=== PATIENT | female | born 1970 | race African-American/Black ===

== ENCOUNTER 2016-12-08 08:39 | Observation (INO) | payer OTHER ==
[2016-12-08] VITALS (9 sets, daily range): BP systolic 91–125; BP diastolic 51–62
[~2016-12-08] VITALS: Ht 152.4 cm; Wt 83.0 kg
[~2016-12-08 08:39] MED LIST: AMLO10TA2 PO; BACL10TA PO; BUPIVACAINE-EPI 0.25%-1:200000 MPF 30 ML VIAL. ONE; CEFAZOLIN 2GM PREMIX 50 ML IV PRN; CICL6.1H IH; CLON0.1T PO; DESFLURANE 61 TO 120 MINUTES IH ONE; DEXAMETHASONE SOD PHOS 20 MG/5 ML VIAL. ONE; FENTANYL PF 100 MCG/2 ML VIAL. IV PRN; FENTANYL PF 100 MCG/2 ML VIAL. ONE; FERR-26 PO; FLUO40CA2 PO; HYDR12.58 PO; HYDR50TA PO; HYDROMORPHONE 2 MG/ML VIAL. IV PRN; IV RINGERS,LACTATED 1000ML 1,000 ML IV SCH; KETOROLAC 30 MG/ML SYRINGE FOR OR. INJ ONE; LIDOCAINE 1% 1 ML SYRINGE. ID PRN; LIDOCAINE 1%/EPI 1:100,000 20 ML VIAL. ONE; LIDOCAINE 2% 100 MG/5 ML DISP.SYRIN. ONE; LOSA25TA4 PO; MIDAZOLAM HCL/PF 2 MG/2 ML VIAL. ONE; NAPR500T8 PO; OMEP40CA5 PO; ONDANSETRON PF 4 MG/2 ML VIAL. IV PRN; ONDANSETRON PF 4 MG/2 ML VIAL. ONE; POLY17PO3 PO; PROCHLORPERAZINE 10 MG/2 ML VIAL. IV PRN; PROPOFOL 20 ML IV ONE; ROCURONIUM 50 MG/5 ML VIAL. ONE; SPIR25TA3 PO
[2016-12-08] MEDS ORDERED: ACETAMINOPHEN INTRAVENOUS 100 ML IV ONE (08:40)
[2016-12-08 09:09] LABS: NEG OBC UR NEG; POS OBC UR POS
[2016-12-08] MEDS ORDERED: ESTROGENS, CONJ VAGINAL CREAM 30GM TUBE. ONE (09:30)
[2016-12-08] MEDS ORDERED: SURGICEL HEMOSTAT 4X8 EACH. ONE (09:30)
[2016-12-08 09:51] LABS: BASO # 0.1 x10^3/uL (0.0-0.2); BASO % 1 % (0-3); EOS % 1 % (0-3); HEMATOCRIT 37.6 % (36.0-47.0); HEMOGLOBIN 12.7 g/dL (12.0-15.5); LYMPH # 3.4 x10^3/uL (1.0-4.8); LYMPH % 35 % (24-48); MEAN CORPUSCULAR HEMOGLOBIN 28 pg (25-35); MEAN CORPUSCULAR HGB CONC 34 g/dL (31-37); MEAN CORPUSCULAR VOLUME 84 fL (79-100); MONO % 10 % (0-9); NEUT % 53 % (31-73); PLATELET COUNT 463 x10^3/uL (140-400); RED CELL DISTRIBUTION WIDTH 13.2 % (11.5-14.5); WHITE BLOOD COUNT 9.5 x10^3/uL (4.0-11.0)
[2016-12-08] MEDS ORDERED: PHENYLEPHRINE in 0.9% NACL PF 1 MG/10 ML DISP.SYRIN. IV ONE ×3 (10:21→12:16)
[2016-12-08] MEDS ORDERED: EPHEDRINE PF IN SALINE 50 MG/5 ML DISP.SYRIN. IV ONE (10:21)
[2016-12-08] MEDS ORDERED: DESFLURANE > 120 MINUTES IH ONE (11:06)
[2016-12-08] MEDS ORDERED: ROCURONIUM 50 MG/5 ML VIAL. ONE (11:14)
[2016-12-08] MEDS ORDERED: PROPOFOL 20 ML IV ONE (11:14)
[2016-12-08] MEDS ORDERED: FENTANYL PF 100 MCG/2 ML VIAL. ONE ×3 (12:56→14:15)
[2016-12-08] MEDS ORDERED: CALCIUM CARBONATE 500 MG TAB.CHEW PO PRN (14:00)
[2016-12-08] MEDS ORDERED: ONDANSETRON PF 4 MG/2 ML VIAL. IV PRN (14:00)
[2016-12-08] MEDS ORDERED: DEXTROSE 50% 25 GM / 50ML DISP.SYRIN. IV PRN (14:00)
[2016-12-08] MEDS ORDERED: DIPHENHYDRAMINE 50 MG/ML VIAL IV PRN (14:00)
[2016-12-08] MEDS ORDERED: 0.9 % SODIUM CHLORIDE 10 ML DISP.SYRIN. IV PRN (14:00)
[2016-12-08] MEDS ORDERED: ZOLPIDEM 5 MG TABLET. PO PRN (14:00)
[2016-12-08] MEDS ORDERED: DIPHENHYDRAMINE HCL 25 MG CAPSULE PO PRN (14:00)
[2016-12-08] MEDS ORDERED: PROCHLORPERAZINE 10 MG/2 ML VIAL. IV PRN (14:00)
--- NOTE | 2016-12-08 14:00 | PDOC ---
BRIEF OPERATIVE NOTE Pre-Op Diagnosis 1. AUB 2. Dysmenorrhe 3. KENN Cyst Post-Op Diagnosis SAme + Fibroids Procedure Performed LAVH & LSO Surgeon Dr. Benoit Anesthesia Type: General Blood Loss 150 ml Specimens Obtained uterus, cervix, Left fallopian tube, KENN Findings enlarged uterus with multiple fibroids, multiple adhesions to abd wall and pelvic side wall, KENN cyst Complications none Additional Remarks pt. stable. LINA BENOIT Jr, MD Dec 08, 2016 14:00
[2016-12-08] MEDS: FENTANYL PF 100 MCG/2 ML VIAL. IV PRN ×4 (14:05→15:00)
[2016-12-08] MEDS: MORPHINE SULFATE 2 MG/ML DISP.SYRIN. IV PRN ×2 (14:18→14:41)
[2016-12-08] MEDS: KETOROLAC TROMETHAMINE 30 MG/ML SYRINGE. IV PRN ×2 (15:52→22:16)
[2016-12-08] MEDS: GABAPENTIN 300 MG CAPSULE. PO SCH ×2 (18:27→22:15)
[2016-12-08] MEDS: OXYCODONE/APAP 5/325 TABLET. PO PRN ×2 (18:28→22:59)
--- NOTE | 2016-12-08 19:24 | OP ---
DATE OF SURGERY: PREOPERATIVE DIAGNOSES: 1. Abnormal uterine bleeding. 2. Dysmenorrhea. 3. Left ovarian cyst. POSTOPERATIVE DIAGNOSES: 1. Abnormal uterine bleeding. 2. Dysmenorrhea. 3. Left ovarian cyst. 4. Fibroids. PROCEDURE: LAVH and LSO. SURGEON: Lina Lua M.D. ANESTHESIA: GETA. ESTIMATED BLOOD LOSS: 150 mL. COMPLICATIONS: None. FINDINGS: Enlarged fibroid uterus, multiple abdominal wall and pelvic several adhesions, left ovarian cyst. COMPLICATIONS: None. SUMMARY: A 46-year-old female with long history of abnormal uterine bleeding, dysmenorrhea, and left ovarian cyst that continued to worsen over time, unresponsive to medical treatment. The patient was counseled on definitive treatment in the form of LAVH and LSO risks, benefits and expectations and voiced a clear understanding to proceed. DESCRIPTION OF PROCEDURE: The patient was taken to the surgery suite and placed in dorsal lithotomy position where she was prepped with Betadine solution for vaginal prep and ChloraPrep for abdominal prep. After adequate anesthesia, bivalve speculum was placed vaginally. Anterior lip of the cervix grasped with a single tooth tenaculum. The [employer] uterine manipulator was then placed. The bivalve speculum was removed. Attention was now placed on abdomen. Small transverse skin incision was made just below the umbilicus. The Veress needle was then placed through the infraumbilical incision site. The abdomen was allowed to insufflate up to 1-1/2 liters of CO2 gas. Veress needle was then removed, 5 mm trocar was placed. Scope was positioned. There were multiple abdominal adhesions of the bowel to the abdominal wall plus the uterus to the abdominal wall and pelvic sidewall. Incision made in the left upper quadrant as well as two additional incisions in the left lower quadrant where 5 mm trocars were placed each site. With aid of graspers and EnSeal device as well as EndoShears, the bowel wall adhesions were meticulously removed without injuring the intestines. The adhesions to the pelvic sidewall also removed with EndoShears as well as EnSeal device, the left round ligament was able to be isolated, coagulated and dissected with EnSeal device. The left infundibulopelvic ligament was coagulated and dissected. There appeared to be areas of endometriosis as well as cyst in the left ovary that was irrigated and suctioned out. The left broad ligament was coagulated and dissected as well as the left pelvic sidewall adhesions to the abdominal wall adhesions to the uterus were dissected with the use of blunt dissection as well as EndoShears until the uterus was free from the anterior abdominal wall. The right round ligament was coagulated and dissected. The right broad ligament was dissected free from the pelvic sidewall and dissected with EnSeal device. We then proceeded vaginally. The Valtchev uterine manipulator and single tooth tenaculum were removed. Deysi clamps were placed on the anterior and posterior lip of the cervix. The cervix was injected with 1% lidocaine with epinephrine injected in a circumferential manner. Bovie cautery was utilized to circumscribe the cervix. The lower uterine segment was dissected free from the similar fashion, mucosa was dissected free from the lower uterine segment using a moist Ray-Arsh. The parametrial tissue was clamped bilaterally, cut, and suture ligated with 2-0 Vicryl suture. Posterior cul-de-sac was entered sharply with curved Barajas scissors. The uterosacral ligaments were clamped bilaterally, cut, and suture ligated. The anterior cul-de-sac was entered bluntly. The uterus was then retroverted. Two additional pedicles were taken just adjacent to the uterus bilaterally, which were clamped with curved Lilian clamps, cut and tied with free tie. The cervix, uterus, left fallopian tube and ovary were then removed. A modified Lin's culdoplasty was performed incorporating the uterosacral ligaments bilaterally. The remainder of the vaginal cuff was reapproximated using 2-0 Vicryl suture in a [id number] manner. A Premarin soaked vaginal pack was then placed. We then proceeded to the abdomen again. The abdomen was allowed to insufflate with gas up to 1-1/2 liters CO2 gas. The pedicles were reviewed and was suction irrigation and were all hemostatic. A small amount of normal saline was left in posterior cul-de-sac. The trocars were then removed under direct visualization. The abdomen was allowed to deflate as much as possible along with mechanical manipulation. The four skin incisions were reapproximated using 4-0 Vicryl suture in a subcuticular manner. 0.25% Marcaine with epinephrine was injected at each incision site. The patient tolerated the procedure well and was taken to recovery room in stable condition. Sponge and needle count correct x 3. LINA LUA MD DR: AURA/tao JOB#: [id number] / [id number]
[2016-12-09] VITALS (7 sets, daily range): BP systolic 98–122; BP diastolic 57–71
[2016-12-09] MEDS: OXYCODONE/APAP 5/325 TABLET. PO PRN ×3 (03:18→22:07)
[2016-12-09] MEDS: KETOROLAC TROMETHAMINE 30 MG/ML SYRINGE. IV PRN ×2 (04:25→10:08)
[2016-12-09] MEDS ORDERED: DIPHENHYDRAMINE 50 MG/ML VIAL. IV PRN (05:02)
[2016-12-09] MEDS: GABAPENTIN 300 MG CAPSULE. PO SCH ×2 (06:19→22:06)
[2016-12-09 07:12] LABS: BASO % 0 % (0-3); EOS % 0 % (0-3); HEMATOCRIT 29.1 % (36.0-47.0); HEMOGLOBIN 9.5 g/dL (12.0-15.5); LYMPH # 1.2 x10^3/uL (1.0-4.8); LYMPH % 8 % (24-48); MEAN CORPUSCULAR HEMOGLOBIN 28 pg (25-35); MEAN CORPUSCULAR HGB CONC 33 g/dL (31-37); MEAN CORPUSCULAR VOLUME 86 fL (79-100); MONO % 6 % (0-9); NEUT % 86 % (31-73); PLATELET COUNT 361 x10^3/uL (140-400); RED BLOOD COUNT 3.38 x10^6/uL (3.50-5.40); RED CELL DISTRIBUTION WIDTH 13.5 % (11.5-14.5); WHITE BLOOD COUNT 14.2 x10^3/uL (4.0-11.0)
[2016-12-09] MEDS: SIMETHICONE 80 MG TAB.CHEW PO PRN (08:49)
[2016-12-09 09:01] LABS: PLT ESTIMATE ADEQUATE (ADEQUATE)
--- NOTE | 2016-12-09 13:19 | PDOC ---
SURGICAL PROGRESS NOTE Subjective Pt. feeling well. Pain moderately controlled. Fever overnight. Vital Signs Vital Signs Date Time Temp Pulse Resp B/P Pulse Ox O2 Delivery O2 Flow Rate FiO2 12/09/16 09:00 98.8 109 18 98/71 96 Room Air 98.8 12/08/16 17:14 2.0 I&O Intake and Output 12/09/16 07:00 Intake Total 3895 ml Output Total 1770 ml Balance 2125 ml Intake Oral 1145 ml IV Total 2750 ml Output Urine Total 1620 ml Estimated Blood Loss 150 ml PATIENT HAS A HUSSEIN: No General: Alert, Oriented X3 HEENT: Atraumatic Lungs: Clear to auscultation Heart: Regular rate Abdomen: Normal bowel sounds, Soft, No masses Labs Laboratory Tests Test 12/08/16 08:50 12/08/16 09:35 12/09/16 06:35 Urine Test Negative (NEG) White Blood Count 9.5x10^3/uL (4.0-11.0) 14.2x10^3/uL (4.0-11.0) Red Blood Count 4.50x10^6/uL (3.50-5.40) 3.38x10^6/uL (3.50-5.40) Hemoglobin 12.7g/dL (12.0-15.5) 9.5g/dL (12.0-15.5) Hematocrit 37.6% (36.0-47.0) 29.1% (36.0-47.0) Mean Corpuscular Volume 84fL (79-100) 86fL (79-100) Mean Corpuscular Hemoglobin 28pg (25-35) 28pg (25-35) Mean Corpuscular Hemoglobin Concent 34g/dL (31-37) 33g/dL (31-37) Red Cell Distribution Width 13.2% (11.5-14.5) 13.5% (11.5-14.5) Platelet Count 463x10^3/uL (140-400) 361x10^3/uL (140-400) Neutrophils (%) (Auto) 53% (31-73) 86% (31-73) Lymphocytes (%) (Auto) 35% (24-48) 8% (24-48) Monocytes (%) (Auto) 10% (0-9) 6% (0-9) Eosinophils (%) (Auto) 1% (0-3) 0% (0-3) Basophils (%) (Auto) 1% (0-3) 0% (0-3) Neutrophils # (Auto) 5.1x10^3uL (1.8-7.7) 12.1x10^3uL (1.8-7.7) Lymphocytes # (Auto) 3.4x10^3/uL (1.0-4.8) 1.2x10^3/uL (1.0-4.8) Monocytes # (Auto) 0.9x10^3/uL (0.0-1.1) 0.9x10^3/uL (0.0-1.1) Eosinophils # (Auto) 0.1x10^3/uL (0.0-0.7) 0.0x10^3/uL (0.0-0.7) Basophils # (Auto) 0.1x10^3/uL (0.0-0.2) 0.0x10^3/uL (0.0-0.2) Segmented Neutrophils % 83% (35-66) Band Neutrophils % 1% (0-9) Lymphocytes % 8% (24-48) Monocytes % 8% (0-10) Platelet Estimate Adequate (ADEQUATE) Laboratory Tests Test 12/09/16 06:35 White Blood Count 14.2x10^3/uL (4.0-11.0) Red Blood Count 3.38x10^6/uL (3.50-5.40) Hemoglobin 9.5g/dL (12.0-15.5) Hematocrit 29.1% (36.0-47.0) Mean Corpuscular Volume 86fL (79-100) Mean Corpuscular Hemoglobin 28pg (25-35) Mean Corpuscular Hemoglobin Concent 33g/dL (31-37) Red Cell Distribution Width 13.5% (11.5-14.5) Platelet Count 361x10^3/uL (140-400) Neutrophils (%) (Auto) 86% (31-73) Lymphocytes (%) (Auto) 8% (24-48) Monocytes (%) (Auto) 6% (0-9) Eosinophils (%) (Auto) 0% (0-3) Basophils (%) (Auto) 0% (0-3) Neutrophils # (Auto) 12.1x10^3uL (1.8-7.7) Lymphocytes # (Auto) 1.2x10^3/uL (1.0-4.8) Monocytes # (Auto) 0.9x10^3/uL (0.0-1.1) Eosinophils # (Auto) 0.0x10^3/uL (0.0-0.7) Basophils # (Auto) 0.0x10^3/uL (0.0-0.2) Segmented Neutrophils % 83% (35-66) Band Neutrophils % 1% (0-9) Lymphocytes % 8% (24-48) Monocytes % 8% (0-10) Platelet Estimate Adequate (ADEQUATE) Problem List Problems Medical Problems: (1) Abnormal uterine bleeding (AUB) Status: Acute (2) Dysmenorrhea Status: Acute (3) Fibroid uterus Status: Acute (4) Ovarian mass, left Status: Acute Assessment/Plan POD#1 s/p LAVH & LSO P: Continue care. D/c home tomorrow. Problems: LINA TATUM Jr, MD Dec 09, 2016 13:19
[2016-12-09] MEDS: IBUPROFEN 800 MG TABLET. PO PRN (18:33)
[2016-12-09] MEDS: PIPERACILLIN/TAZOBACTAM 3.375 GM in IV NORMAL SALINE 50ML 50 ML IV SCH (19:44)
[2016-12-10] MEDS: PIPERACILLIN/TAZOBACTAM 3.375 GM in IV NORMAL SALINE 50ML 50 ML IV SCH ×5 (00:26→23:58)
[2016-12-10] MEDS: IBUPROFEN 800 MG TABLET. PO PRN ×3 (03:07→19:59)
[2016-12-10] MEDS: OXYCODONE/APAP 5/325 TABLET. PO PRN ×2 (03:07→08:51)
[2016-12-10 03:09] VITALS: BP 114/67
[2016-12-10 05:51] LABS: BASO # 0.1 x10^3/uL (0.0-0.2); BASO % 0 % (0-3); EOS % 1 % (0-3); HEMOGLOBIN 10.3 g/dL (12.0-15.5); LYMPH # 3.4 x10^3/uL (1.0-4.8); LYMPH % 26 % (24-48); MEAN CORPUSCULAR HEMOGLOBIN 28 pg (25-35); MEAN CORPUSCULAR HGB CONC 33 g/dL (31-37); MEAN CORPUSCULAR VOLUME 86 fL (79-100); MONO % 5 % (0-9); NEUT % 68 % (31-73); PLATELET COUNT 356 x10^3/uL (140-400); RED BLOOD COUNT 3.63 x10^6/uL (3.50-5.40); RED CELL DISTRIBUTION WIDTH 13.6 % (11.5-14.5); WHITE BLOOD COUNT 13.1 x10^3/uL (4.0-11.0)
[2016-12-10 06:15] VITALS: BP 114/72
[2016-12-10] MEDS ORDERED: GABAPENTIN 300 MG CAPSULE. PO ONE (08:12)
[2016-12-10] MEDS: SIMETHICONE 80 MG TAB.CHEW PO PRN (08:51)
[2016-12-10] MEDS: GABAPENTIN 300 MG CAPSULE. PO SCH ×2 (08:51→21:33)
[2016-12-10 11:36] VITALS: BP 108/63
[2016-12-10] MEDS ORDERED: DEXTROSE 50% 25 GM / 50ML DISP.SYRIN. IV PRN (13:30)
--- NOTE | 2016-12-10 15:47 | PDOC ---
SURGICAL PROGRESS NOTE Subjective Pt. feeling better this am. She had Tmax 101.1 degrees F yesterday. She is receiving abx currently. Pt. tolerating regular diet and positive flatus. Vital Signs Vital Signs Date Time Temp Pulse Resp B/P Pulse Ox O2 Delivery O2 Flow Rate FiO2 12/10/16 11:36 98.1 87 17 108/63 96 Room Air 98.1 I&O Intake and Output 12/10/16 07:00 Intake Total 900 ml Output Total 300 ml Balance 600 ml Intake Oral 900 ml Output Urine Total 300 ml # Voids 3 PATIENT HAS A HUSSEIN: No General: Alert, Oriented X3 HEENT: Atraumatic Lungs: Clear to auscultation Heart: Regular rate Abdomen: Normal bowel sounds, Soft, No masses, Other (mild tenderness; incision sites healing well.) Extremities: No edema Psych/Mental Status: Mental status NL Labs Laboratory Tests Test 12/09/16 06:35 12/10/16 05:00 White Blood Count 14.2x10^3/uL (4.0-11.0) 13.1x10^3/uL (4.0-11.0) Red Blood Count 3.38x10^6/uL (3.50-5.40) 3.63x10^6/uL (3.50-5.40) Hemoglobin 9.5g/dL (12.0-15.5) 10.3g/dL (12.0-15.5) Hematocrit 29.1% (36.0-47.0) 31.0% (36.0-47.0) Mean Corpuscular Volume 86fL (79-100) 86fL (79-100) Mean Corpuscular Hemoglobin 28pg (25-35) 28pg (25-35) Mean Corpuscular Hemoglobin Concent 33g/dL (31-37) 33g/dL (31-37) Red Cell Distribution Width 13.5% (11.5-14.5) 13.6% (11.5-14.5) Platelet Count 361x10^3/uL (140-400) 356x10^3/uL (140-400) Neutrophils (%) (Auto) 86% (31-73) 68% (31-73) Lymphocytes (%) (Auto) 8% (24-48) 26% (24-48) Monocytes (%) (Auto) 6% (0-9) 5% (0-9) Eosinophils (%) (Auto) 0% (0-3) 1% (0-3) Basophils (%) (Auto) 0% (0-3) 0% (0-3) Neutrophils # (Auto) 12.1x10^3uL (1.8-7.7) 9.0x10^3uL (1.8-7.7) Lymphocytes # (Auto) 1.2x10^3/uL (1.0-4.8) 3.4x10^3/uL (1.0-4.8) Monocytes # (Auto) 0.9x10^3/uL (0.0-1.1) 0.6x10^3/uL (0.0-1.1) Eosinophils # (Auto) 0.0x10^3/uL (0.0-0.7) 0.1x10^3/uL (0.0-0.7) Basophils # (Auto) 0.0x10^3/uL (0.0-0.2) 0.1x10^3/uL (0.0-0.2) Segmented Neutrophils % 83% (35-66) Band Neutrophils % 1% (0-9) Lymphocytes % 8% (24-48) Monocytes % 8% (0-10) Platelet Estimate Adequate (ADEQUATE) Laboratory Tests Test 12/10/16 05:00 White Blood Count 13.1x10^3/uL (4.0-11.0) Red Blood Count 3.63x10^6/uL (3.50-5.40) Hemoglobin 10.3g/dL (12.0-15.5) Hematocrit 31.0% (36.0-47.0) Mean Corpuscular Volume 86fL (79-100) Mean Corpuscular Hemoglobin 28pg (25-35) Mean Corpuscular Hemoglobin Concent 33g/dL (31-37) Red Cell Distribution Width 13.6% (11.5-14.5) Platelet Count 356x10^3/uL (140-400) Neutrophils (%) (Auto) 68% (31-73) Lymphocytes (%) (Auto) 26% (24-48) Monocytes (%) (Auto) 5% (0-9) Eosinophils (%) (Auto) 1% (0-3) Basophils (%) (Auto) 0% (0-3) Neutrophils # (Auto) 9.0x10^3uL (1.8-7.7) Lymphocytes # (Auto) 3.4x10^3/uL (1.0-4.8) Monocytes # (Auto) 0.6x10^3/uL (0.0-1.1) Eosinophils # (Auto) 0.1x10^3/uL (0.0-0.7) Basophils # (Auto) 0.1x10^3/uL (0.0-0.2) Problem List Problems Medical Problems: (1) Abnormal uterine bleeding (AUB) Status: Acute (2) Dysmenorrhea Status: Acute (3) Fibroid uterus Status: Acute (4) Ovarian mass, left Status: Acute Assessment/Plan A: POD#2 s/p LAVH & LSO Fever: resolving P: Continue abx and current care. Anticipate d/c home tomorrow if no fevers. Problems: LINA TATUM Jr, MD Dec 10, 2016 15:47
[2016-12-10 16:57] VITALS: BP 121/67
[2016-12-10 23:30] VITALS: BP 121/77
[2016-12-11] MEDS: IBUPROFEN 800 MG TABLET. PO PRN ×2 (06:08→12:00)
[2016-12-11] MEDS: GABAPENTIN 300 MG CAPSULE. PO SCH ×2 (06:08→11:59)
[2016-12-11] MEDS: PIPERACILLIN/TAZOBACTAM 3.375 GM in IV NORMAL SALINE 50ML 50 ML IV SCH ×2 (06:08→12:01)
[2016-12-11 06:27] VITALS: BP 131/91
[2016-12-11] MEDS ORDERED: DOCUSATE SODIUM 100 MG CAPSULE. PO PRN (12:45)
--- NOTE | 2016-12-11 13:13 | PDOC ---
Provider Note Provider Note Doing well VSS Abd soft NTTP No vag bleeding DC home NABEEL DOMINGUEZ MD Dec 11, 2016 13:13
[2016-12-11] MEDS ORDERED: NAPR500T3 PO (13:27)
[2016-12-11] MEDS ORDERED: OXYC-323 PO (13:27)
[2016-12-11 14:08] VITALS: BP 128/82
--- NOTE | 2016-12-12 05:56 | DS ---
DATE OF DISCHARGE: 12/11/[address] Bello Davis dictating this discharge summary for Dr. Martín Lua. ADMISSION DIAGNOSES: Abnormal uterine bleeding, dysmenorrhea, left ovarian cyst. DISCHARGE DIAGNOSES: Abnormal uterine bleeding, dysmenorrhea, left ovarian cyst, status post laparoscopic-assisted vaginal hysterectomy and left salpingo-oophorectomy. HOSPITAL COURSE: Slow to recovery secondary to the patient's discomfort and pain control. On postop day #1, the patient was afebrile, alert and oriented, tolerating the pain well. She continued to improve, remained afebrile. Incisions remained clean, dry and intact. She had some intermittent elevated temperatures but continued to progress well. On 12/11/2016, the patient was doing quite well. She was confined to the bed secondary to her incarceration status; however, she appeared comfortable. Abdomen was somewhat distended, no rebound, good bowel sounds. She was voiding without any difficulties, tolerating a regular diet and the patient was discharged home in stable condition. Routine discharge instructions were given. If any nausea, vomiting, fever, chills, pain above and beyond what she is experiencing, abnormal vaginal bleeding or discharge or smell or any bleeding or pus coming from her incisions, she is to return to the ER or call Dr. Lua. The patient's discharge instructions were given to her by the nurse. She was discharged on Percocet #40, Naprosyn #60. She is to return and see Dr. Lua in 1 week. BELLO DAVIS MD DR: ANTONI/tao JOB#: [id number] / [id number]
--- NOTE | 2016-12-12 15:16 | PATHOLOGY ---
PATHOLOGY REPORT * * * * * * * * FINAL DIAGNOSIS: Uterus and attached left ovary, laparoscopic-assisted vaginal hysterectomy with left salpingo-oophorectomy: - Adenomyosis, uterine corpus, subbasal (uterine weight 175 grams). - Mild chronic inflammation of exocervix. - Secretory endometrium. 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 - Endometriosis of ovary, focal. - Hemorrhagic corpus luteum of ovary. COMMENT: There is no fallopian tube identified. There is no evidence of malignancy. (JPM:mgsuresh; d/t: 12/12/16) REPORT ELECTRONICALLY SIGNED BY: Johnathan Pino M.D. DATE/TIME: 12/12/2016 15:15 * * * * * * * * GROSS PATHOLOGY: The specimen is received in formalin labeled "Casi Jimenez, uterus, cervix, L tube and ovary". Received is a 175 g, 11.8 x 7.8 x 7.2 cm uterus with attached cervix, upon reconstruction, and attached left ovary weighing 10 g. The uterine serosa is pink-de la cruz and severely disrupted in appearance. The 0.5 cm cervical os is surrounded by pale de la cruz to pink-de la cruz, smooth to disrupted ectocervical mucosa. The uterus is oriented using the peritoneal reflection and the anterior paracervical margin is inked black. The uterus is opened laterally to reveal a pale de la cruz endocervical canal measuring 3.5 cm in length. The endometrial cavity is triangular measuring 4.8 cm in length by 2.3 cm in width. The endometrium is pale de la cruz to white-de la cruz, granular in appearance and measures up to 0.4 cm in thickness. Serial sectioning reveals a de la cruz-pink, trabeculated myometrium measuring up to 2.1 cm in thickness displaying a single intramural fibroid measuring 1.7 cm. The 10 g ovary measures 4.3 x 3.2 x 1.9 cm in greatest dimensions. The fallopian tube is not grossly identified upon initial examination. Sectioning through the ovary reveals corpora lutea ranging in size from 0.5 to 1.4 cm in maximum dimensions. The specimen is submitted representatively as follows: A1 12:00 cervix A2 6:00 cervix A3 anterior endomyometrium A4 posterior endomyometrium A5 customer service representative teller section of fibroid A6 customer service representative teller sections of left ovary. (CAA; 12/09/2016) INITIAL CPT CODE(S): A; 69751 Professional services performed by [facility] at [facility] [address] [place] [address] Technical services performed by [facility] at [address] [place] [address], [facility] [address], [place] [address]. SPECIMEN(S) RECEIVED: A.Uterus, cervix, left tube and ovary CLINICAL HISTORY: Abnormal uterine bleeding PATIENT: CASI JIMENEZ /AGE: 1107/21/1970 (Age: 46) PATIENT #: [id number] ALT CASE #: SPECIMEN COLLECTION DATE: 12/08/2016 SPECIMEN RECEIVED DATE: 12/08/2016 [facility] - [address] [place] [address] - PHONE: [phone] * * * END OF REPORT * * *
== END 2016-12-11 14:45 | disposition home or self-care (01) ==
LOC: SURG 08:39 → 3 NORTH 14:23
PROVIDERS: ADMIT Obstetrics & Gynecology; ATTEND Obstetrics & Gynecology
DX: N93.9 Abnormal uterine and vaginal bleeding, unspecified (principal); N94.6 Dysmenorrhea, unspecified; N83.202 Unspecified ovarian cyst, left side; D25.9 Leiomyoma of uterus, unspecified; K66.0 Peritoneal adhesions (postprocedural) (postinfection)
CPT/HCPCS: 36415; 58552; 81025; 85007; 85027; 86850; 86900; 86901; 96365; 96366; 96375; 96376; A4215; G0378; G0379; J0131; J0690; J0780; J1100; J1885; J2250; J2270; J2370; J2543; J2704; J3010; J3490; J7030; J7120; Q0163; J2405